=== PATIENT | female | born 1950 | race Caucasian/White ===

== ENCOUNTER 2018-07-09 15:00 | Inpatient (IN) ==
[2018-07-09] MEDS ORDERED: ATIVAN IV ONE ×2 (15:24→16:30)
[2018-07-09 15:39] LABS: BASO# 0.03 X1000 (0.0-0.2); BASO% 0.6 % (0.0-0.8); EOS# 0.02 X1000 (0.0-0.7); EOS% 0.4 % (0.0-10.0); HEMOGLOBIN 11.6 g/dL (12.0-16.0); LYMPH# 0.89 X1000 (1.2-3.4); LYMPH% 17.3 % (20.5-51.1); MCH 28.4 PG (27-31); MCHC 33.1 g/dL (33-37); MCV 85.8 FL (81-99); MONO# 0.35 X1000 (0.11-0.59); MONO% 6.8 % (1.7-9.3); MPV 9.7 FL (7.4-10.4); NEUT# 3.84 X1000 (1.4-6.5); NEUT% 74.9 % (42.2-75.2); PLT 200 X1000 (130-400); RBC 4.08 XMIL (4.2-5.4); RDW 15.5 % (11.5-14.5); WBC 5.13 X1000 (4.8-10.8)
--- NOTE | 2018-07-09 15:42 | PROVIDER DOCUMENTATION ---
This chart was entered by Myriam Higgins Scribe, acting as scribe for Howard Lujan MD. [id number] Abuse/Overdose - General Chief Complaint: Alcohol Withdrawal Stated Complaint: SOB Time Seen by Provider: 07/09/18 15:13 Source: patient, EMS (first response) Allergies/Adverse Reactions: Allergies Allergy/AdvReac Type Severity Reaction Status Date / Time No Known Allergies Allergy Verified 07/09/18 15:44 - History of Present Illness-Drug/Alcohol Nature of Presenting Problem: 67 yowf presents to the ed with c/o n/v, tremors, diaphoresis while at work at 1400. pt sts her last drink of vodka was last night and drinks over a pint a day. pt sts felt fine then had acute onset of sx. pt on exam is still anxious but sts she feels better This episode of drinking or use began:: this afternoon (1400) Severity: reports: moderate Situational problems related to:: reports: other (ETOH abuse) Psychiatric Complaints: reports: denies symptoms Associated Symptoms: reports: anxiety, constipation, diaphoresis, malaise, nausea, vomiting (x1), weakness. denies: back/neck pain, chest pain, headaches, heartburn, shortness of breath, syncope Any injuries associated with this episode of intoxication?: No Similar Symptoms Previously?: No Recently seen or treated by another doctor?: No - Alcohol Abuse Usually drinks:: daily Usual alcohol intake amount?: at least a pint of vodka daily Review of Systems - Adult - REVIEW OF SYSTEMS - ADULT Constitutional: reports: no symptoms reported Eyes: denies: blurred vision, double vision Ears, Nose, Mouth & Throat: reports: no symptoms reported Cardiovascular: denies: chest pain, palpitations Respiratory: denies: cough, shortness of breath, wheezing Gastrointestinal: reports: see HPI, abdominal pain, constipation, nausea, vomiting (x1). denies: diarrhea Genitourinary: reports: no symptoms reported Musculoskeletal: reports: muscle weakness. denies: back pain, neck pain Integumentary: reports: no symptoms reported Neurological: denies: dizziness/vertigo, headache/migraines, seizure, slurred speech Psychiatric: reports: see HPI, anxiety, alcohol/drug dependence, depression Endocrine: reports: no symptoms reported Hematologic/Lymphatic: reports: no symptoms reported Allergic/Immunologic: reports: no symptoms reported All Other Systems: Reviewed and Negative Past History - Adult - PAST MEDICAL HISTORY-ADULT Review of Records: reports: Old Records Reviewed, Nursing Assessment Review, Medications Reviewed, Social history reviewed & non-contributory. Major Childhood Illnesses: reports: denies history Cardiovascular: reports: HTN, hyperlipidemia Respiratory: reports: denies history Obstetrical/Gynecological: reports: denies history Genitourinary: reports: denies history Musculoskeletal: reports: denies history Neurological: reports: denies history Psychiatric: reports: anxiety, depression Endocrine/Immune: reports: thyroid disorder Other Conditions: reports: denies history - PRIOR SURGERIES/PROCEDURES Surgical/Procedure History: reports: reviewed, not pertinent - IMMUNIZATION STATUS Childhood Immunizations: See Nurse Assessment Flu Vaccine: See Nurse Assessment - FAMILY HISTORY Family History: reviewed, not pertinent - SOCIAL HISTORY Smoking: denies Substance Use: alcohol Alcohol Use Frequency: every day (pint of vodka daily) Living Situation: alone Physical Exam-General - PHYSICAL EXAM-ADULT Initial Vital Signs Reviewed: Yes (201/114 noted) - CONSTITUTIONAL General Appearance: alert, mild distress, obese - EYES Eyes: PERRL/EOMI, sclera injected - HEAD, EARS, NOSE, MOUTH & THROAT HENMT: normocephalic/atraumatic, moist mucous membranes, normal ENT inspection - NECK Neck: non-tender, full range of motion, supple, normal inspection - RESPIRATORY Respiratory: chest non-tender, lungs clear, normal breath sounds - CARDIOVASCULAR Cardiovascular: normal peripheral pulses, regular rate, rhythm - GASTROINTESTINAL (ABDOMEN) Abdominal Exam: normal bowel sounds, non tender, soft - LYMPHATIC Lymphatic: no adenopathy - MUSCULOSKELETAL Back Exam: normal inspection Extremity: normal range of motion, non-tender, normal gait, no pedal edema, no calf tenderness, normal capillary refill, other (tremor noted to hands) - SKIN Integumentary: normal color, normal turgor, warm/dry - NEUROLOGIC Neurologic: grossly normal - PSYCHIATRIC Psych/Mental Status: oriented x 3, anxious Progress - PLAN OF CARE/RESULTS Progress/Plan/Lab Results: Vital Signs - 8 hr 07/09/18 15:08 07/09/18 16:17 Temperature 98.0 F Pulse Rate 84 103 H Respiratory Rate 18 24 Blood Pressure 201/114 230/149 O2 Sat by Pulse Oximetry 94 L 97 Laboratory Results - last 24 hr 07/09/18 07/09/18 07/09/18 15:12 15:12 15:12 WBC 5.13 RBC 4.08 L Hgb 11.6 L Hct 35.0 L MCV 85.8 MCH 28.4 MCHC 33.1 RDW Std Deviation 15.5 H Plt Count 200 MPV 9.7 Neut % (Auto) 74.9 Lymph % (Auto) 17.3 L [place] % (Auto) 6.8 Eos % (Auto) 0.4 Baso % (Auto) 0.6 Neut # (Auto) 3.84 Lymph # (Auto) 0.89 L [place] # (Auto) 0.35 Eos # (Auto) 0.02 Baso # (Auto) 0.03 Sodium 133 L Potassium 4.1 Chloride 88 L Carbon Dioxide 23 L Anion Gap 22 BUN 11 Creatinine 0.7 Estimated GFR/1.73 m2 > 60 BUN/Creatinine Ratio 16 Glucose 127 H Calculated Osmolality 267 Calcium 9.0 Total Bilirubin 0.46 AST 63 H ALT 58 H Alkaline Phosphatase 108 H Troponin T < 0.010 Total Protein 8.4 H Albumin 4.7 Globulin 3.7 Albumin/Globulin Ratio 1.3 Plasma/Serum Ethyl Alc 07/09/18 15:31 WBC RBC Hgb Hct MCV MCH MCHC RDW Std Deviation Plt Count MPV Neut % (Auto) Lymph % (Auto) [place] % (Auto) Eos % (Auto) Baso % (Auto) Neut # (Auto) Lymph # (Auto) [place] # (Auto) Eos # (Auto) Baso # (Auto) Sodium Potassium Chloride Carbon Dioxide Anion Gap BUN Creatinine Estimated GFR/1.73 m2 BUN/Creatinine Ratio Glucose Calculated Osmolality Calcium Total Bilirubin AST ALT Alkaline Phosphatase Troponin T Total Protein Albumin Globulin Albumin/Globulin Ratio Plasma/Serum Ethyl Alc Orders Category Date Time Status Cardiac Monitoring DIRECTED Care 07/09/18 15:25 Active Finger Stick Blood Sugar (ED) DIRECTED Care 07/09/18 15:25 Active Saline Loc NOW Care 07/09/18 15:[address] HEAD W/O CONTRAST [CT] Stat Exams 07/09/18 15:25 Completed ALCOHOL BLOOD Stat Lab 07/09/18 15:31 Completed CBC WITH ELECTRONIC DIFF [HEME] Stat Lab 07/09/18 15:12 Completed COMPREHENSIVE METABOLIC PANEL [CHEM] Stat Lab 07/09/18 15:12 Completed TROPONIN T Stat Lab 07/09/18 15:12 Completed Lorazepam [Ativan] Med 07/09/18 15:24 Discontinued 1 mg IV NOW ONE Lorazepam [Ativan] Med 07/09/18 16:30 Once 1 mg IV NOW ONE Ondansetron [Zofran] Med 07/09/18 16:18 Discontinued 4 mg IV NOW ONE Thiamine 100 mg Med 07/09/18 16:00 Discontinued 0.9% Sodium Chloride Inj [Ns] 50 ml IV NOW EKG [EKG] Stat Ther 07/09/18 15:25 Ordered Result Diagrams: 07/09/18 15:12 07/09/18 15:12 - EKG 1 Time of EKG reading by physician:: 15:08 EKG Read and Signed by:: Howard Lujan EKG Interpretation (*Must complete 3 of following elements*): Normal Rate: 77 Rhythm: nsr [place]: normal QRS: normal [place] Interval: normal ST Wave: normal Prior EKG Comparison: no prior EKG - CT/MRI 1 CT Study: Head Impression: See EMR Report (EXAM: CT HEAD W/O CONTRAST INDICATION: stroke like symptoms TECHNIQUE: This exam was performed using automated exposure control, adjustment of mA or kV according to patient size, and/or use of iterative reconstruction technique. COMPARISON: None. FINDINGS: There is very mild periventricular low-attenuation suggesting minimal white matter microangiopathy bilaterally. There is no definite acute infarct given the limited sensitivity of CT versus MRI. There is no discrete intracranial mass, mass effect, or intracranial hemorrhage. The surrounding soft tissues and bony structures are essentially unremarkable. IMPRESSION: Minimal chronic appearing white matter changes but no definite acute intracranial pathology by CT. Electronically signed by Alo Brewer 07/09/2018 4:04 PM 07/09/18 1604 Interpreting Physician: Alo Brewer MD Dictated Date/Time: 07/09/18 1604 cc: Howard Lujan MD; Teto Garicas MD) - CONSULTS/PCP/HOSPITALIST Notification #1 *Consult/PCP/Hospitalist*: Dr. Flores Time Discussed: 16:30 Consult Disposition: Admit Departure - Departure Date of Disposition Decision: 07/09/18 Time of Disposition Decision: 16:33 DIAGNOSIS: Uncontrolled hypertension Alcohol withdrawal Qualifiers: Complication of substance-induced condition: with unspecified complication Qualified Code(s): F10.239 - Alcohol dependence with withdrawal, unspecified Disposition: ADMITTED INPATIENT 09 Certified Medical Emergency: Emergent Condition: Stable Referrals and Follow-Ups: Teto Garcias MD [Primary Care Provider] - - Critical Care Note This patient required my direct & personal management of CC.: No Attestation - Physician/ ZOLTAN Attestation Patient care was provided by Advanced Practice Provider:: No The physician spent face to face time with patient:: Yes Advanced Practice Provider documentation review:: Supervising physician onsite and consulted in the evaluation and care of this patient. The physician did have a face to face encounter with the patient. This chart was documented by the indicated scribe, (Myriam Higgins Scribe) and accurately reflects the services I performed and decisions made by me, Howard Lujan MD, as attested by the provider's signature.
[2018-07-09] MEDS ORDERED: THIAMINE 100 MG in NS 50 ML IV ONE (16:00)
[2018-07-09 16:04] LABS: ESTIMATED GFR > 60
[2018-07-09 16:07] LABS: AGAP 22; ALB/GLOB RATIO 1.3; ALBUMIN 4.7 g/dL (3.5-5.0); ALKALINE PHOSPHATASE 108 U/L (32-104); BUN 11 mg/dL (8-22); CHLORIDE 88 mmol/L (98-107); COSMO 267; CREATININE 0.7 mg/dL (0.5-0.9); GLUCOSE 127 mg/dL (70-104); GOT 63 U/L (10-30); GPT 58 U/L (10-36); POTASSIUM 4.1 mmol/L (3.5-5.1); SODIUM 133 mmol/L (136-145); TCO2 23 mmol/L (25-35); TOTAL BILIRUBIN 0.46 mg/dL (0.20-1.00); TOTAL PROTEIN 8.4 g/dL (6.3-8.3)
--- NOTE | 2018-07-09 16:07 | Diag Imaging Result Doc PS360 ---
EXAM: CT HEAD W/O CONTRAST INDICATION: stroke like symptoms TECHNIQUE: This exam was performed using automated exposure control, adjustment of mA or kV according to patient size, and/or use of iterative reconstruction technique. COMPARISON: None. FINDINGS: There is very mild periventricular low-attenuation suggesting minimal white matter microangiopathy bilaterally. There is no definite acute infarct given the limited sensitivity of CT versus MRI. There is no discrete intracranial mass, mass effect, or intracranial hemorrhage. The surrounding soft tissues and bony structures are essentially unremarkable. IMPRESSION: Minimal chronic appearing white matter changes but no definite acute intracranial pathology by CT. Electronically signed by Alo Brewer 07/09/2018 4:04 PM
[2018-07-09] MEDS ORDERED: ZOFRAN IV ONE (16:18)
[2018-07-09] MEDS ORDERED: ZOFRAN IV PRN (16:33)
[2018-07-09] MEDS ORDERED: ATIVAN IV PRN (16:41)
[2018-07-09] MEDS ORDERED: LIBRIUM PO SCH (16:45)
[2018-07-09] MEDS ORDERED: NS 1,000 ML IV SCH (19:45)
[2018-07-09 19:53] LABS: MAGNESIUM 1.6 mg/dL (1.5-2.7); PHOSPHORUS 3.8 mg/dL (2.7-4.5)
[2018-07-09] MEDS ORDERED: SODIUM CHLORIDE 0.9% INJ SCH (20:00)
--- NOTE | 2018-07-09 20:10 | HISTORY AND PHYSICAL ---
CHIEF COMPLAINT: Nausea, vomiting and tremulousness. HISTORY OF PRESENT ILLNESS: Ms. Naomi Meadows is a 67-year-old white female patient. The patient was at work. The patient claims she felt nauseous. She covered her mouth. Her boss saw her. Patient was very shaky, tremulous. They called EMS. The patient en route her blood pressure was more than 200. They recorded 218/142. The patient got labetalol 20 mg IV on the route. The patient was brought to the emergency room. The patient claimed she drinks a pint of vodka every single day. Last drink was yesterday. The patient claims she had days where she did not drink alcohol for 5 to 7 days, but then she would binge drink alcohol. She did try to quit drinking alcohol. She attended AA meeting, but she did not succeed. Patient does feel nervous and anxious. The patient claims to be under stress, at times dull headache. No typical chest pain or palpitations. No orthopnea or PND. Patient does have polyuria, polydipsia. No dysuria or hematuria. Denied any diarrhea, blood or mucus in the stool. At times, arthritic pain in the knee. No heat or cold intolerance. Denied any leg swelling. No further history available at this time. The patient was feeling depressed for which she was prescribed Zoloft. No further history available at this time. ALLERGIES: No known drug allergy. HOME MEDICATIONS: Includes patient is on Cozaar, Zoloft, Prilosec, Synthroid, Pravachol. PAST MEDICAL HISTORY: Hypertension, hypothyroidism, gastritis and reflux disease, hyperlipidemia, depression. PERSONAL HISTORY: Single. Patient does drink alcohol, a pint of vodka a day. Denied smoking. Patient works in [employer]. FAMILY HISTORY: Significant for diabetes and hypertension. REVIEW OF SYSTEMS: As per HPI. PHYSICAL EXAMINATION: GENERAL: Middle-aged white female patient, morbidly obese in mild distress. VITAL SIGNS: On arrival, her blood pressure was 201/114, pulse 84, respirations 18, temperature 98 degrees, O2 saturation was 94%. SKIN: Normal turgor. No rash or petechiae. HEENT: Head atraumatic, normocephalic. [place] conjunctivae. Anicteric sclerae. Extraocular muscle movement normal. Fundus cannot be penetrated. Good oral hygiene. No tonsillopharyngeal congestion or exudate. Ears and nose benign. NECK: Supple. No JVD, thyromegaly or lymphadenopathy. CHEST: Bilateral good air entry present. No rales. CARDIOVASCULAR: S1 and S2 heard. No gallop or thrill. ABDOMEN: Soft, globular. Bowel sounds present. EXTREMITIES: No cyanosis, clubbing. No acute DVT. CENTRAL NERVOUS SYSTEM: Alert, awake, answering questions fairly well. Able to move all 4 limbs. No evidence of acute DVT. LABORATORY DATA: Hemoglobin 11.6, hematocrit 35, WBC count 5.13, platelet count 200,000. Electrolytes fairly benign. Sodium 133, BUN 11, creatinine 0.7, AST 63, ALT was 58. Cardiac isoenzymes were negative. Alcohol level was 0. PATIENT'S PROBLEMS: Include: 1. Emergent hypertension. 2. Alcohol withdrawal. 3. Gastritis and reflux disease. 4. Morbid obesity. 5. Alcoholic liver disease. 6. Hypothyroidism. 7. Gastritis. PLAN: Admit the patient, close observation. DT precaution. Seizure precaution. We will give her banana bag. IV hydration. Close monitoring. I encouraged the patient to quit drinking alcohol. The patient understood and agreed. We will check appropriate labs. cc: MD Mo Bauman MD
[2018-07-09] MEDS: M.V.I.-12 10 ML, FOLIC ACID 1 MG, MAGNESIUM SULFATE 1 GM, THIAMINE 100 MG in NS 1,000 ML IV SCH (20:12)
[2018-07-09] MEDS: PROTONIX IV SCH (20:12)
[2018-07-09] MEDS: LIBRIUM PO SCH (20:13)
[2018-07-09] MEDS: LOVENOX SUBQ SCH (20:13)
[2018-07-09 20:20] LABS: INR 0.93; PROTIME 13.2 Seconds (11.0-16.0)
[2018-07-09] MEDS: NS 1,000 ML IV SCH (20:36)
[2018-07-09] MEDS: ATIVAN IV PRN (22:14)
[2018-07-10] MEDS: LIBRIUM PO SCH ×5 (01:22→18:32)
[2018-07-10] MEDS: NS 1,000 ML IV SCH ×4 (03:29→23:54)
[2018-07-10 06:47] LABS: HEMOGLOBIN A1C 5.6 % (4.8-6.0)
[2018-07-10 06:52] LABS: BASO# 0.02 X1000 (0.0-0.2); BASO% 0.4 % (0.0-0.8); EOS# 0.07 X1000 (0.0-0.7); EOS% 1.5 % (0.0-10.0); HEMATOCRIT 33.3 % (37.0-47.0); HEMOGLOBIN 10.8 g/dL (12.0-16.0); LYMPH# 1.38 X1000 (1.2-3.4); LYMPH% 28.9 % (20.5-51.1); MCH 27.8 PG (27-31); MCHC 32.4 g/dL (33-37); MCV 85.6 FL (81-99); MONO# 0.46 X1000 (0.11-0.59); MONO% 9.6 % (1.7-9.3); MPV 10.3 FL (7.4-10.4); NEUT# 2.85 X1000 (1.4-6.5); NEUT% 59.6 % (42.2-75.2); PLT 190 X1000 (130-400); RBC 3.89 XMIL (4.2-5.4); RDW 15.3 % (11.5-14.5); RETIC% 0.92 % (0.8-2.1); RETIC-HE 34.5 PG (28.2-36.6); WBC 4.78 X1000 (4.8-10.8)
[2018-07-10 07:09] LABS: AGAP 15; ALB/GLOB RATIO 1.2; ALBUMIN 4.1 g/dL (3.5-5.0); ALKALINE PHOSPHATASE 94 U/L (32-104); BUN 12 mg/dL (8-22); CALCIUM 8.9 mg/dL (8.8-10.2); CHLORIDE 96 mmol/L (98-107); COSMO 278; CREATININE 0.8 mg/dL (0.5-0.9); ESTIMATED GFR > 60; GLUCOSE 105 mg/dL (70-104); GOT 39 U/L (10-30); GPT 43 U/L (10-36); POTASSIUM 4.1 mmol/L (3.5-5.1); SODIUM 139 mmol/L (136-145); TCO2 28 mmol/L (25-35); TOTAL BILIRUBIN 0.62 mg/dL (0.20-1.00); TOTAL PROTEIN 7.4 g/dL (6.3-8.3)
[2018-07-10 07:31] LABS: TSH 6.06 uIUmL (0.27-4.20)
[2018-07-10] MEDS: TOPROL XL PO SCH (08:50)
[2018-07-10] MEDS: COZAAR PO SCH (08:50)
[2018-07-10] MEDS: FOLIC ACID PO SCH (12:00)
--- NOTE | 2018-07-10 12:39 | PROGRESS NOTE ---
DATE: 07/10/2018 SUBJECTIVE: Ms. Meadows is feeling some better. No history suggestive of hallucinations. No fever or chills. Her heart rate is around 90. She was complaining of some tightness in her chest, I am going to repeat the EKG and cardiac isoenzymes. The patient is vague and a poor historian. The patient claims she does have bad reflux. Denied any headache. No dysuria or hematuria. Patient admitted with emergent hypertension, alcohol withdrawal, and known case of gastritis and reflux disease. OBJECTIVE: Vitals: Vital signs are noted. Blood pressure 176/109, pulse 101, respirations 20, temperature 99.3 degrees. Neck: Supple. No JVD, thyromegaly or lymphadenopathy. Chest: Bilateral good air entry present. CVS: S1 and S2 heard. Abdomen: Soft, globular. Bowel sounds present. Extremities: No cyanosis or clubbing. No acute DVT. 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 CONSIDERATION: Emergent hypertension, alcohol abuse and withdrawal oval. I started her on beta jason. Resume her Cozaar at higher dose. Continue her Librium and Ativan. I am giving her banana bag once a day. The patient is on Protonix. DVT prophylaxis. Overall plan discussed with the patient and she is in agreement. cc: MD Mo Bauman MD
[2018-07-10] MEDS: LOVENOX SUBQ SCH (20:19)
[2018-07-10] MEDS: PROTONIX IV SCH (20:20)
[2018-07-10] MEDS: M.V.I.-12 10 ML, FOLIC ACID 1 MG, MAGNESIUM SULFATE 1 GM, THIAMINE 100 MG in NS 1,000 ML IV SCH (20:20)
[2018-07-10] MEDS: ATIVAN IV PRN (20:21)
[2018-07-10] MEDS: XALATAN 0.005% OPH SOLN OPH SCH (20:22)
[2018-07-10] MEDS: COSOPT OPHTH SOLN OPH SCH (20:23)
[2018-07-11] MEDS: LIBRIUM PO SCH ×5 (05:19→21:15)
[2018-07-11] MEDS: NS 1,000 ML IV SCH ×2 (05:20→12:34)
[2018-07-11 07:30] LABS: AGAP 13; ALB/GLOB RATIO 1.2; ALBUMIN 3.9 g/dL (3.5-5.0); ALKALINE PHOSPHATASE 90 U/L (32-104); BUN 8 mg/dL (8-22); CALCIUM 8.5 mg/dL (8.8-10.2); CHLORIDE 102 mmol/L (98-107); COSMO 278; CREATININE 0.7 mg/dL (0.5-0.9); ESTIMATED GFR > 60; GLUCOSE 99 mg/dL (70-104); GOT 48 U/L (10-30); GPT 40 U/L (10-36); POTASSIUM 4.1 mmol/L (3.5-5.1); SODIUM 140 mmol/L (136-145); TCO2 25 mmol/L (25-35); TOTAL BILIRUBIN 0.59 mg/dL (0.20-1.00); TOTAL PROTEIN 7.1 g/dL (6.3-8.3)
[2018-07-11] MEDS: FOLIC ACID PO SCH (08:29)
[2018-07-11] MEDS: COZAAR PO SCH (08:29)
[2018-07-11] MEDS: PRAVACHOL PO SCH (08:29)
[2018-07-11] MEDS: TOPROL XL PO SCH (08:29)
[2018-07-11] MEDS: COSOPT OPHTH SOLN OPH SCH ×2 (08:29→21:15)
--- NOTE | 2018-07-11 12:25 | PROGRESS NOTE ---
DATE: 07/11/2018 SUBJECTIVE: Mr. Meadows is doing better. She denied any chest pain or palpitations. No unusual headache. Denied any tremulousness or hallucination. No nausea or vomiting. No chest pain. OBJECTIVE: Vital Signs: Her vital signs noted. Blood pressure is improving. Neck: Supple. No JVD. Lungs: Bilateral good air entry present. CVS: S1 and S2 heard. Abdomen: Soft, globular. Bowel sounds present. Extremities: No cyanosis, clubbing. No acute DVT. WAREHOUSE MANAGER: Alert, awake. Able to move all 4 limbs. ASSESSMENT AND PLAN: Overall, patient is doing better. I am going to transfer patient to telemetry bed. Continue current treatment. We will ambulate the patient in the room and hallway. Optimize blood pressure treatment. If clinical condition permits, we will plan discharging patient home soon. Her problems include: 1. Hypertension. 2. Hyperlipidemia. 3. Glaucoma. 4. Alcohol abuse. The patient preferred to see female counselor for her alcohol consultation and will make necessary recommendations with social service. Encouraged weight reduction. Blood work done today noted. cc: MD Mo Bauman MD
[2018-07-11] MEDS: NORVASC PO SCH (13:37)
[2018-07-11] MEDS: M.V.I.-12 10 ML, FOLIC ACID 1 MG, MAGNESIUM SULFATE 1 GM, THIAMINE 100 MG in NS 1,000 ML IV SCH (21:13)
[2018-07-11] MEDS: PROTONIX IV SCH (21:14)
[2018-07-11] MEDS: XALATAN 0.005% OPH SOLN OPH SCH (21:15)
[2018-07-11] MEDS: LOVENOX SUBQ SCH (21:15)
[2018-07-12] MEDS: LIBRIUM PO SCH ×5 (04:14→16:57)
[2018-07-12 06:28] LABS: AGAP 12; ALB/GLOB RATIO 1.3; ALKALINE PHOSPHATASE 87 U/L (32-104); BUN 12 mg/dL (8-22); CALCIUM 8.6 mg/dL (8.8-10.2); CHLORIDE 103 mmol/L (98-107); COSMO 277; CREATININE 0.8 mg/dL (0.5-0.9); ESTIMATED GFR > 60; GLUCOSE 100 mg/dL (70-104); GOT 38 U/L (10-30); GPT 39 U/L (10-36); POTASSIUM 3.8 mmol/L (3.5-5.1); SODIUM 139 mmol/L (136-145); TCO2 24 mmol/L (25-35)
--- NOTE | 2018-07-12 08:09 | EKG Report ---
Test Performed on : 07/10/2018 1:21:43 PM Test Reason : CP Blood Pressure : / mmHG Vent. Rate : 098 BPM Atrial Rate : 098 BPM P-R Int : 138 ms QRS Dur : 086 ms QT Int : 386 ms P-R-T Axes : 039 -12 063 degrees QTc Int : 492 ms Normal sinus rhythm. Inferior infarct (cited on or before 10-JUL-2018) Possible Anterior infarct , age undetermined Abnormal ECG When compared with ECG of 10-JUL-2018 08:03, (Unconfirmed) No significant change was found Unconfirmed Result
[2018-07-12] MEDS: NORVASC PO SCH (08:18)
[2018-07-12] MEDS: FOLIC ACID PO SCH (08:18)
[2018-07-12] MEDS: PRAVACHOL PO SCH (08:18)
[2018-07-12] MEDS: COZAAR PO SCH (08:18)
--- NOTE | 2018-07-12 08:19 | EKG Report ---
Test Performed on : 07/09/2018 3:08:40 PM Test Reason : Stroke like symptoms Blood Pressure : / mmHG Vent. Rate : 077 BPM Atrial Rate : 077 BPM P-R Int : 170 ms QRS Dur : 084 ms QT Int : 422 ms P-R-T Axes : 045 009 025 degrees QTc Int : 477 ms Normal sinus rhythm. Normal ECG No previous ECGs available Unconfirmed Result
[2018-07-12] MEDS: COSOPT OPHTH SOLN OPH SCH ×2 (08:49→21:08)
--- NOTE | 2018-07-12 09:55 | EKG Report ---
Test Performed on : 07/09/2018 3:56:10 PM Test Reason : ED. No order in [place] Blood Pressure : / mmHG Vent. Rate : 101 BPM Atrial Rate : 101 BPM P-R Int : 160 ms QRS Dur : 088 ms QT Int : 366 ms P-R-T Axes : 040 033 047 degrees QTc Int : 474 ms Sinus tachycardia. Otherwise normal ECG When compared with ECG of 09-JUL-2018 15:08, (Unconfirmed) No significant change was found Unconfirmed Result
[2018-07-12] MEDS: COREG PO SCH ×2 (12:49→21:08)
[2018-07-12] MEDS: M.V.I.-12 10 ML, FOLIC ACID 1 MG, MAGNESIUM SULFATE 1 GM, THIAMINE 100 MG in NS 1,000 ML IV SCH (21:05)
[2018-07-12] MEDS: LOVENOX SUBQ SCH (21:07)
[2018-07-12] MEDS: PROTONIX IV SCH (21:07)
[2018-07-12] MEDS: XALATAN 0.005% OPH SOLN OPH SCH (21:07)
--- NOTE | 2018-07-12 21:15 | PROGRESS NOTE ---
DATE: 07/12/2018 SUBJECTIVE: A 67-year-old, white female, was admitted on 07/09/2018 in the ICU. Apparently, patient was brought in by the ambulance with nausea, vomiting and elevated blood pressure. Patient had blood pressure that was derik high. She had been drinking alcohol. She was in withdrawals. The patient was moved out of the ICU. REVIEW OF SYSTEMS: The patient is eating well. No headache, no chest pain, shortness of breath. No nausea, vomiting or abdominal pain. Genitourinary: No history of dysuria, hesitancy or frequency. PAST MEDICAL HISTORY: Reviewed. PAST SURGICAL HISTORY: Reviewed. MEDICINES: Reviewed. ALLERGIES: Not known. OBJECTIVE: Vital signs: Temperature is 98 degrees, pulse is 97, blood pressure is 147/88, room air 93%. HEENT Exam: Atraumatic, normocephalic. Pupils equal, react to light. Nose and throat within normal limits. Neck: Supple. No lymphadenopathy. No goiter. Chest: Bilateral air entry. Cardiovascular: Heart sounds are regular, tachycardic. Abdomen: Belly is soft, nontender. Neurological: No obvious deficits noted. INVESTIGATIONS: CBC: White cell count 4.7, hematocrit 33, platelets 190. SMA 7: Sodium 139, potassium 3.8, chloride 103, BUN 12, creatinine 0.8, glucose 100. AST and ALT slightly high. TSH 6.0. Folate is low B12 is normal. Alcohol level not detected. EKG: Sinus tachycardia, nothing acute. CT head: Negative, chronic ischemic changes. ASSESSMENT AND PLAN: 1. Altered mental status due to delirium tremens, alcohol withdrawals, social worker health services consult. Continue on Librium 25 t.i.d. 2. Hypertension. Coreg 12.5 p.o. b.i.d., amlodipine 5 mg daily, Losartan 100 daily. 3. Deep venous thrombosis and gastrointestinal prophylaxis with Lovenox and Protonix. 4. Folic acid deficiency. Banana bag as directed. Discontinue IV fluids. 5. Hyperlipidemia on Pravachol 20 mg daily. 6. Glaucoma stable. 7. Needs detox programs. We will consider using Naltrexone. Other options with AA meetings. Out of the bed and we will follow up. LEVEL OF DOCUMENTATION: 30 minutes. cc: MD PAUL Walton
--- NOTE | 2018-07-13 10:21 | Diag Imaging Result Doc PS360 ---
EXAM: CHEST-PORTABLE HISTORY: coughing/wheezing TECHNIQUE: Portable chest COMPARISON: None. FINDINGS: Poor inspiratory effort. The heart is not enlarged. The vessels are not distended. There are no infiltrates. No effusion identified. IMPRESSION: No pneumonia. Electronically signed by Bam Saldivar 07/13/2018 10:19 AM
[2018-07-13] MEDS: FOLIC ACID PO SCH (10:27)
[2018-07-13] MEDS: PRAVACHOL PO SCH (10:27)
[2018-07-13] MEDS: COREG PO SCH ×2 (10:27→20:08)
[2018-07-13] MEDS: NORVASC PO SCH (10:27)
[2018-07-13] MEDS: COZAAR PO SCH (10:27)
[2018-07-13] MEDS: LIBRIUM PO SCH ×3 (10:28→17:13)
[2018-07-13] MEDS: COSOPT OPHTH SOLN OPH SCH ×2 (10:28→20:19)
[2018-07-13] MEDS: M.V.I.-12 10 ML, FOLIC ACID 1 MG, MAGNESIUM SULFATE 1 GM, THIAMINE 100 MG in NS 1,000 ML IV SCH (20:01)
[2018-07-13] MEDS: XALATAN 0.005% OPH SOLN OPH SCH (20:08)
[2018-07-13] MEDS: PROTONIX PO SCH (20:08)
[2018-07-13] MEDS: LOVENOX SUBQ SCH (20:08)
--- NOTE | 2018-07-13 21:18 | PROGRESS NOTE ---
DATE: 07/13/2018 SUBJECTIVE: The patient's sister is at bedside. She complains of cough. She has been bingeing alcohol for a long time. CAGE questionnaire: She has 4/4, consistent with alcohol addiction. She is slowly detoxifying. REVIEW OF SYSTEMS: Complains of cough. OBJECTIVE: Temperature is 98 degrees, pulse 78, blood pressure 127/63. Slightly obese. HEENT exam within normal limits. Neck is supple. Chest has bilateral air entry. Heart sounds are regular. Belly is soft, obese, nontender. Good bowel sounds. No peripheral edema. No obvious neurological deficits. DIAGNOSTIC DATA: Chest x-ray stable. ASSESSMENT AND PLAN: 1. Cough. No aspiration pneumonia noted. 2. Impending delirium tremens. Stable on Librium. Also Vivitrol injections have been offered. 3. social services aide for detoxification program. 4. Hypertension, on Coreg, amlodipine and Librium. Continue on banana bag. 5. Glaucoma, stable. 6. Deep venous thrombosis and gastrointestinal prophylaxis. 7. Hyperlipidemia, on Pravachol. 8. The patient definitely needs detoxification program, given the history of long-term alcoholism. Level of documentation is 25 minutes. cc: Mo Garcias MD
[2018-07-14] MEDS: COSOPT OPHTH SOLN OPH SCH ×2 (09:26→20:55)
[2018-07-14] MEDS: NORVASC PO SCH (09:27)
[2018-07-14] MEDS: PRAVACHOL PO SCH (09:27)
[2018-07-14] MEDS: FOLIC ACID PO SCH (09:27)
[2018-07-14] MEDS: COREG PO SCH ×2 (09:27→20:55)
[2018-07-14] MEDS: COZAAR PO SCH (09:29)
[2018-07-14] MEDS: LIBRIUM PO SCH ×3 (09:34→18:28)
[2018-07-14] MEDS: DUONEB (A & A) INH SCH ×3 (15:58→22:56)
--- NOTE | 2018-07-14 20:19 | PROGRESS NOTE ---
DATE: 07/14/2018 SUBJECTIVE: The patient's sister was at bedside. Cough is slightly improving. Some wheezing. Discussed about detox programs. PHYSICAL EXAMINATION: Vital signs: Temperature is 97 degrees, vitals are stable, 93% on room air. General appearance: Slightly obese. Chest: Bilateral wheezing. Heart: Sounds are very distant. ASSESSMENT AND PLAN: 1. Delirium tremens, slowly improving. Consider using Vivitrol injections and outpatient with Librium. 2. CAGE questionnaire, she has a 3/4. 3. Hypertension, stable on present medications with amlodipine, Cozaar, and Coreg. 4. Deep vein thrombosis prophylaxis with Lovenox. 5. Hyperlipidemia, on pravastatin. 6. Out of the bed. 7. Added bronchodilators for wheezing. 8. Continue on banana bag. 9. No seizure activity, no DTs seen. 10. Make the plans with Cnc Service Engineer. LEVEL OF DOCUMENTATION: 25 minutes. cc: Mo Garcias MD
[2018-07-14] MEDS: M.V.I.-12 10 ML, FOLIC ACID 1 MG, MAGNESIUM SULFATE 1 GM, THIAMINE 100 MG in NS 1,000 ML IV SCH (20:54)
[2018-07-14] MEDS: XALATAN 0.005% OPH SOLN OPH SCH (20:54)
[2018-07-14] MEDS: LOVENOX SUBQ SCH (20:54)
[2018-07-14] MEDS: PROTONIX PO SCH (20:55)
[2018-07-15] MEDS: DUONEB (A & A) INH SCH ×6 (03:25→23:38)
[2018-07-15] MEDS: COREG PO SCH ×2 (09:55→20:34)
[2018-07-15] MEDS: FOLIC ACID PO SCH (09:56)
[2018-07-15] MEDS: COZAAR PO SCH (09:56)
[2018-07-15] MEDS: PRAVACHOL PO SCH (09:56)
[2018-07-15] MEDS: NORVASC PO SCH (09:56)
[2018-07-15] MEDS: COSOPT OPHTH SOLN OPH SCH ×2 (09:57→20:34)
[2018-07-15] MEDS: LIBRIUM PO SCH ×3 (09:57→20:34)
[2018-07-15] MEDS ORDERED: BLISTEX MEDICATED BERRY LIP BALM TOP PRN (14:04)
[2018-07-15] MEDS: M.V.I.-12 10 ML, FOLIC ACID 1 MG, MAGNESIUM SULFATE 1 GM, THIAMINE 100 MG in NS 1,000 ML IV SCH (20:33)
[2018-07-15] MEDS: LOVENOX SUBQ SCH (20:34)
[2018-07-15] MEDS: XALATAN 0.005% OPH SOLN OPH SCH (20:34)
[2018-07-15] MEDS: PROTONIX PO SCH (20:35)
--- NOTE | 2018-07-15 21:27 | PROGRESS NOTE ---
DATE: 07/15/2018 SUBJECTIVE: The patient has a little bit of wheezing and cough. Sister was at bedside. OBJECTIVE: On exam, temperature is 97 degrees, pulse 78, blood pressure is stable. Heavyset. HEENT exam within normal limits. Neck is supple. No lymphadenopathy. Chest has bilateral air entry, scattered wheezing. Belly is soft, nontender. Good bowel sounds. No neurological deficits. INVESTIGATIONS: None reported. ASSESSMENT AND PLAN: 1. Impending delirium tremens, stable. 2. Hypertension, stable. 3. Pickwickian syndrome. 4. Questionable sleep apnea, outpatient workup. 5. Detoxification with Librium, banana bag as directed. 6. Deep venous thrombosis and gastrointestinal prophylaxis. as per orders. 7. Glaucoma, stable. Encouraged the patient for ambulation, detoxification programs. Will follow up. Level of documentation 25 minutes. cc: Mo Garcias MD MTDD
[2018-07-16] MEDS: DUONEB (A & A) INH SCH ×2 (03:49→07:51)
[2018-07-16 07:20] VITALS: BP 125/70
[2018-07-16] MEDS ORDERED: VIVITROL IM ONE (08:12)
[2018-07-16] MEDS ORDERED: PREVNAR 13 IM ONE (08:12)
[2018-07-16] MEDS: COSOPT OPHTH SOLN OPH SCH (08:20)
[2018-07-16] MEDS: PRAVACHOL PO SCH (08:22)
[2018-07-16] MEDS: COZAAR PO SCH (08:22)
[2018-07-16] MEDS: NORVASC PO SCH (08:22)
[2018-07-16] MEDS: FOLIC ACID PO SCH (08:22)
[2018-07-16] MEDS: LIBRIUM PO SCH (08:22)
[2018-07-16] MEDS: COREG PO SCH (08:22)
--- NOTE | 2018-07-16 16:23 | DISCHARGE SUMMARY ---
ADMISSION DATE: 07/10/2018 DISCHARGE DATE: 07/16/2018 DISCHARGING DIAGNOSES: 1. Uncontrolled hypertension. 2. Impending delirium tremens. 3. Metabolic syndrome. 4. History of sleep apnea. 5. Hypertension. 6. Depression. 7. Acid reflux disease. 8. Hypothyroidism. 9. Hyperlipidemia. 10. Chronic alcohol addiction-Cates question positive 06/21. CONSULTATION: director of home health services consult for outpatient detox programs. BRIEF HISTORY: Please see the history and physical that was done on 07/[address] Farah. In brief, she is a 67-year-old, white female who has been drinking off and on. Failed the AA meetings with the above problems, came in from the job with nausea and vomiting, shakiness. Blood pressure was very high. The patient was admitted in ICU for impending DTs. She stopped drinking alcohol 2 days before the presentation. HOSPITAL COURSE: 1. The patient was given IV banana bag, replacing thiamine, folic acid, magnesium. 2. Patient was started on IV Ativan and Librium. Subsequently DT symptoms were much controlled. The patient is not shaking, not tachycardic. 3. director of home health services consult obtained for outpatient detox program. Also initiated Vivitrol injection followed by naltrexone. The patient has some cough and wheezing, given bronchodilators. Chest x-ray with no pneumonia noted. Blood pressure medicines were optimized. The patient came back to baseline. She wants to go home and follow up outpatient detox programs. Continue on Vivitrol for detox. LABORATORY DATA: CBC: White cell count 4.7, hematocrit 33, platelets 190,000. SMA-7: Sodium 139, potassium 3.8, chloride 103, BUN 12, creatinine 0.8, calcium 8.6. LFTs were slightly high. Plasma serum alcohol none detected. CT head: No definitive acute intracranial pathology noted. Chest x-ray: No pneumonia. DISCHARGE INSTRUCTIONS: 1. Initiate pneumococcal vaccine prior to the discharge. 2. Detox programs as an outpatient. Vivitrol 380 mg 1 shot prior to the discharge. 3. Synthroid 50 mcg daily. 4. Coreg 12.5 p.o. b.i.d. 5. Cozaar 100 p.o. daily. 6. Folic acid 1 mg daily. 7. Vitamin D3 800 units daily. 8. Naltrexone 50 mg daily. 9. Latanoprost 1 drop p.o. in the evening. 10. Dorzolamide timolol eye drops 1 drop p.o. b.i.d. 11. Prilosec 40 daily. 12. Zoloft 150 daily. 13. Pravastatin 40 daily. 14. Follow up in my office next week. cc: Mo Garcias MD MTDD
== END 2018-07-16 11:21 | disposition home or self-care (01) | DRG 897 ==
LOC: SUPCPDRO → ED 15:00 → ICU 15:00 → 3N 07-11 18:09
PROVIDERS: ADMIT Internal Medicine; ATTEND Internal Medicine
CPT/HCPCS: 70450; 71010; 71045; 80053; 80307; 80320; 82055; 82550; 82607; 82728; 82746; 83036; 83540; 83735; 84100; 84443; 84484; 85025; 85045; 85610; 93005; 93010; 94640; 94761; 94799; 96365; 96375; 96376; 99285; A9270; C9113; G0480; G6040; J1650; J2060; J2405; J3411; J3475; J7030; S0164